=== PATIENT | male | born 1945 | race Caucasian/White ===

== ENCOUNTER 2017-10-12 13:37 | Outpatient (CLI) | payer MEDICARE ==
[2017-10-12 15:07] LABS: #Basophils 0.1 thou/uL (0.0-0.2); #Eosinphils 0.1 thou/uL (0.0-0.7); #Lymphocytes 2.2 thou/uL (1.20-3.40); #Monocytes 0.5 thou/uL (0.11-0.59); #Neutrophils 3.1 thou/uL (1.40-6.50); %Basophils 0.9 % (0.0-1.0); %Eosinophils 1.4 % (0.0-10.0); %Lymphocytes 36.7 % (21.0-51.0); %Monocytes 8.5 % (0.0-10.0); %Neutrophils 52.5 % (42.0-75.0); Hemoglobin 13.7 g/dL (14.0-18.0); Mean Corpuscular HGB CONC 35.3 g/dL (32.0-36.0); Mean Corpuscular Hemoglobin 32.3 pg (27.0-31.0); Mean Corpuscular Volume 91.7 fL (78.0-98.0); Mean Platelet Volume 6.6 fL (7.4-10.4); Platelet Count 272 thou/uL (130-400); RBC Distribution Width 11.5 % (11.5-14.5); Red Blood Cell (RBC) Count 4.23 mill/uL (4.70-6.10); White Blood Cell (WBC) Count 5.9 thou/uL (4.8-10.8)
[2017-10-12 15:30] LABS: Anion Gap 11 mmol/L (10-20); BUN (Urea Nitrogen) 23 mg/dL (8.4-25.7); Calc. Creatinine Clearance 0 mL/min (70-130); Calcium 9.3 mg/dL (7.8-10.44); Carbon Dioxide 28 mmol/L (23-31); Chloride 105 mmol/L (98-107); Estimated GFR-MDRD 89; Glucose 115 mg/dL (80-115); Potassium 3.8 mmol/L (3.5-5.1); Sodium 140 mmol/L (136-145)
--- NOTE | 2017-10-13 13:01 | EKG ---
Test Reason : Blood Pressure : / mmHG Vent. Rate : 053 BPM Atrial Rate : 053 BPM P-R Int : 184 ms QRS Dur : 094 ms QT Int : 444 ms P-R-T Axes : 028 005 039 degrees QTc Int : 416 ms Sinus bradycardia Otherwise normal ECG When compared with ECG of 12-AUG-2016 06:49, Premature atrial complexes are no longer Present Confirmed by LASHAE OHARA, DR. Jean ([id number]) on 10/13/2017 1:01:14 PM Referred By: TY Confirmed By:DR. Ted BHARDWAJ MD
--- NOTE | 2017-10-17 14:58 | RAD ---
CHEST 2 VIEWS: Date: 10/12/17 HISTORY: Preoperative exam. COMPARISON: None. FINDINGS: Normal cardiac silhouette. Lungs and pleural spaces are clear. No pneumothorax or osseous abnormaliti es. IMPRESSION: No acute cardiopulmonary process. POS: [facility]
== END 2017-10-12 13:38 | disposition home or self-care (01) ==
LOC: LABBT 13:37
PROVIDERS: ATTEND Orthopaedic Surgery Hand Surgery
DX: Z01.818 Encounter for other preprocedural examination (principal); S62.645A Nondisplaced fracture of proximal phalanx of left ring finger, initial encounter for closed fracture
CPT/HCPCS: 71046; 80048; 85025; 93005; 93010

== ENCOUNTER 2017-10-13 10:03 | Day surgery (SDC) | payer MEDICARE ==
[2017-10-12 13:53] VITALS: BMI 28.7
[2017-10-13] MEDS ORDERED: Bacitracin Zinc Ointment 30 gm TUBE ONE (10:27)
[2017-10-13] MEDS ORDERED: Sodium Chloride 0.9% 0 ML ONE (10:27)
[2017-10-13] MEDS ORDERED: Bupivacaine PF 0.5% 30 ML VIAL ONE (10:27)
[2017-10-13] MEDS ORDERED: Midazolam HCl 2 mg/2 ml Vial ONE (10:35)
[2017-10-13] MEDS ORDERED: Fentanyl 100 MCG/2 ML VIAL ONE (10:35)
[2017-10-13] MEDS ORDERED: Clindamycin/D5W 900 mg/50 ml Premix Bag ONE (10:46)
[2017-10-13] MEDS ORDERED: Ketorolac Tromethamine 30 MG/ML VIAL ONE ×2 (13:19→15:44)
--- NOTE | 2017-10-13 13:49 | RAD ---
LEFT HAND 4TH DIGIT 4 VIEWS: HISTORY: ORIF. COMPARISON: None. EXPOSURE: 89 seconds. 2.27 mGy. FINDINGS: Three fluoroscopic views demonstrate 4 screws in the mid to distal aspect of the proximal phalanx of the 4th digit. IMPRESSION: Fluoroscopy as above. POS: [facility]
[2017-10-13] MEDS ORDERED: Ondansetron HCl/PF 4 MG/2 ML Vial ONE (15:44)
[2017-10-13] MEDS ORDERED: PROPOFOL 200 MG/20 ML VIAL ONE (15:44)
[2017-10-13] MEDS ORDERED: Lidocaine 1% PF 5 ML VIAL ONE (15:44)
--- NOTE | 2017-10-16 13:37 | OP ---
DATE OF SURGERY: 10/13/2017 PREOPERATIVE DIAGNOSIS: Left ring finger displaced, angulated, malrotated, proximal phalanx three-pa rt fracture. POSTOPERATIVE DIAGNOSIS: Left ring finger displaced, angulated, malrotated, proximal phalanx three-p art fracture. PROCEDURES PERFORMED: Left ring finger proximal phalanx fracture open reduction and internal fixatio n with multiple layers ____. SPECIMEN REMOVED: None. ESTIMATED BLOOD LOSS: Less than or equal to 10 mL. TOURNIQUET TIME: 42 minutes. FINDINGS: A three-part fracture while angulated in frontal sagittal planes with comminution at the i nterfragmentary level. INDICATIONS: The patient returned to the clinic with a 30-degree malrotation, 20-degrees apex radial angulation with the ring finger pointing over and under the small finger. No other injuries localiz ed to include no small finger fracture, phalanx, metacarpal small or the long finger. DESCRIPTION OF PROCEDURE: After successful general LMA technique by [facility], the limb was prepped and draped. The patient then had 10 mL metacarpophalange al joint block level and an attempted closed reduction was done x2, initially it did not work. Then, we deflated the tourniquet, performed a mid lateral incision, because of the plain rotation and then completed a reduction by simply elevating the extensor mechanism, did not enter or open the extensor mechanism. Then, we held it with clamps, and then placed progressive lag screws x3 from the distal third of fracture to the mid third and this gave excellent position to include corrected the malrotat ion and angulation. Remaining screws were placed as being just proximal to the central ____ lag tech nique and all screws were more mixture of the 2.0 and 1.5 size sets. We then realized that we had li fted up the extensor mechanism, so as not to violate it and this was maintained throughout all screw placement. C-arm confirmed anatomic position with excellent correction of the angulation as well and then there was no evidence of anesthetic or operative procedure when the tourniquet was released. T he patient left the operating room in a splint, ulnar gutter, to protect the ring finger on the left.
== END 2017-10-13 15:15 | disposition home or self-care (01) ==
LOC: SDC 10:03
PROVIDERS: ATTEND Orthopaedic Surgery Hand Surgery
PROC: 0PSV04Z Reposition Left Finger Phalanx with Internal Fixation Device, Open Approach (ICD-10-PCS; principal; 2017-10-13)
DX: S62.615A Displaced fracture of proximal phalanx of left ring finger, initial encounter for closed fracture (principal); E78.00 Pure hypercholesterolemia, unspecified; M19.90 Unspecified osteoarthritis, unspecified site; W23.0XXA Caught, crushed, jammed, or pinched between moving objects, initial encounter; Z88.0 Allergy status to penicillin; Z79.52 Long term (current) use of systemic steroids; Z79.899 Other long term (current) drug therapy
CPT/HCPCS: 26735; 73140; 76000; 96372; C1713 ×2; A4216; J1885; J2001; J2250; J2405; J2704; J3010; J3490; S0020